=== PATIENT | male | born 1980 | race Caucasian/White ===

== ENCOUNTER 2020-01-05 00:13 | Emergency (ER) | payer SELFPAY ==
[~2020-01-05] VITALS: Ht 175 cm; Wt 117.9 kg
[2020-01-05 00:47] VITALS: BP 132/97
[2020-01-05] MEDS ORDERED: RX-GENTAMICIN SULFATE 0.3% OP 5 ML BTL OD STA (01:24)
--- NOTE | 2020-01-05 01:28 | ED EENT ---
History of Present Illness General Chief Complaint: Eye Problems Stated Complaint: OBJECT IN RIGHT EYE Nursing Triage Note: Pt complaining of right eye pain. Pt states he was working on his vehicle earlier tonight and now has something in his eye Source: patient Exam Limitations: no limitations History of Present Illness Date Seen by Provider: January 05, 2020 Time Seen by Provider: 00:15 Initial Comments The patient is a 39-year-old male presents for evaluation of likely foreign body in the right eye. He states he was working on his vehicle earlier tonight and feels that there is a foreign body in his eye. He says that he was wearing safety glasses at the time. He reports normal vision and states that he is up-to-date with his tetanus immunization status. He says that he try to flush his eye out but this did not provide much relief. He has no other complaints at this time. Timing/Duration: abrupt Severity: moderate Location: eye (R) Prearrival Treatment: flushing eyes Allergies and Home Medications Allergies Coded Allergies: No Known Drug Allergies (Unverified , 01/05/20) Patient Home Medication List Home Medication List Reviewed: Yes Review of Systems Review of Systems Constitutional: no symptoms reported Eyes: Pain (right eye) Ears: No Symptoms Reported Nose: no symptoms reported Mouth: no symptoms reported Throat: no symptoms reported Respiratory: no symptoms reported Cardiovascular: no symptoms reported Gastrointestinal: no symptoms reported Musculoskeletal: no symptoms reported Skin: no symptoms reported Neurological: No Symptoms Reported Hematologic/Lymphatic: No Symptoms Reported Immunological/Allergic: no symptoms reported All Other Systems Reviewed Negative Unless Noted: Yes Past Vetnpdw-Npyavv-Fhodrc Hx Past Med/Social Hx: Reviewed Nursing Past Med/Soc Hx Patient Social History Alcohol Use: Denies Use Recreational Drug Use: No Smoking Status: Never a Smoker 2nd Hand Smoke Exposure: No Recent Foreign Travel: No Contact w/Someone Who Travel: No Recent Infectious Disease Expo: No Recent Hopitalizations: No Physical Abuse: No Sexual Abuse: No Past Medical History Surgeries: No Respiratory: No Cardiac: No Neurological: No Genitourinary: No Gastrointestinal: No Musculoskeletal: No Endocrine: No HEENT: No Cancer: No Psychosocial: No Integumentary: No Blood Disorders: No Physical Exam Vital Signs Vital Signs - First Documented 01/05/20 00:14 Temp 36.6 Pulse 58 Resp 16 B/P (MAP) 132/97 (109) Pulse Ox 96 O2 Delivery Room Air Height, Weight, BMI Height: '" Weight: lbs. oz. kg; 38.00 BMI Method: General Appearance: WD/WN, no apparent distress Eyes: right eye conjunctival inflammation, right eye foreign body (small fb (1mm) to right lateral eye at the corneal limbus); left eye normal inspection; bilateral eye PERRL, bilateral eye EOMI Respiratory: lungs clear, normal breath sounds, no respiratory distress Gastrointestinal: normal bowel sounds, non tender, soft Neurologic/Psychiatric: no motor/sensory deficits, alert, normal mood/affect, oriented x 3 Skin: normal color, warm/dry Progress/Results/Core Measures Results/Orders My Orders Orders - SHIREEN FORDE DO Tetracaine 0.5% Ophth Kirsten Sdv (Tetracai (01/05/20 01:30) Rx-Gentamicin Ophth Soln (Rx-Gentamicin (01/05/20 01:24) Rx-Hydrocodone/Apap 5-325 Mg (Rx-Vicodin (01/05/20 01:30) Vital Signs/I&O 01/05/20 01/05/20 00:14 00:47 Temp 36.6 36.6 Pulse 58 58 Resp 16 16 B/P (MAP) 132/97 (109) 132/97 (109) Pulse Ox 96 96 O2 Delivery Room Air Room Air Blood Pressure Mean: 109 Progress Progress Note : Progress Note @0030 - right eye was instilled with tetracaine which removes the patient's pain complaint. Conjunctival inflammation was noted. There is a small foreign body approximately 1 mm in size and possibly metallic at the right (9 o'clock position) corneal limbus. A Patel lamp was used after staining with fluorescein and no corneal abrasion or ice-skating appearance was noted. A sterile Q-tip was used to remove part of the foreign body. Following this procedure there did remain either a small part of the foreign body or some dirt/debris staining the eye. The patient states that he would prefer an eye doctor to remove the additional debris as this will likely require a needle or cortney. The patient tells me he is up-to-date with his tetanus immunization status. He'll go home with a prescription for gentamicin and hydrocodone. Given that this area is not compromising the patient's vision in any way this is entirely reasonable. I strongly advised the patient to follow up with ophthalmology, Dr. Simon, this morning. Advised the patient to return to the emergency Department immediately for new or worsening symptoms. The patient expresses verbal understanding and agreement with the plan and is stable for discharge at this time. Departure Impression Primary Impression: Foreign body of cornea Disposition: HOME, SELF-CARE Condition: Stable Departure-Patient Inst. Decision time for Depature: 00:40 Referrals: SELF,SKYLER HINKLE (PCP/Family) Primary Care Physician Ophthalmmologist Patient Instructions: Foreign Body in Eye Add. Discharge Instructions: Follow-up with Dr. Simon, the eye doctor, in the morning. Take the prescribed antibiotic and pain medicine as directed. Return to the emergency Department immediately for new or worsening symptoms. SHIREEN FORDE DO January 05, 2020 01:28
[2020-01-05] MEDS ORDERED: TETRACAINE 0.5% OPHTH SOLN 4 ML BTL (SINGLE DOSE ONLY) OP ONE (01:30)
[2020-01-05] MEDS ORDERED: RX-HYDROCODONE/APAP 5/325 MG #4 TAB PK PO PRN (01:30)
== END 2020-01-05 01:40 | disposition home or self-care (01) ==
LOC: ER FS 01:24
DX: T15.01XA Foreign body in cornea, right eye, initial encounter (principal)
CPT/HCPCS: 99282

== ENCOUNTER 2020-08-03 17:39 | Emergency (ER) | payer OTHER ==
[~2020-08-03] VITALS: Ht 170.1 cm; Wt 120.9 kg
[2020-08-03 17:53] VITALS: BP 125/98
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
[2020-08-03] MEDS ORDERED: TETANUS,DIPTH,PERTUSS P/F (BOOSTRIX) 0.5 ML VIAL IM ONE (18:15)
[2020-08-03] MEDS ORDERED: TETANUS & DIPHTHERIA TOX,ADULT 0.5 ML (TENIVAC) IM ONE (18:15)
== END 2020-08-03 18:18 | disposition home or self-care (01) ==
LOC: EDUNIT# 17:39 → ER FS 17:41
DX: S01.01XA Laceration without foreign body of scalp, initial encounter (principal); Z23 Encounter for immunization; W22.8XXA Striking against or struck by other objects, initial encounter
CPT/HCPCS: 90714